=== PATIENT | female | born 1960 | race Hispanic/Latino ===

== ENCOUNTER → 2020-05-04 | Outpatient (CLI) | payer BC ==
[~2020-05-04] MED LIST: IOHEXOL-350 75 ML VIAL IV ONE
== END | disposition home or self-care (01) ==
LOC: RAH 04-29 09:38
PROVIDERS: ATTEND Neurological Surgery
DX: I65.23 Occlusion and stenosis of bilateral carotid arteries (principal); M50.30 Other cervical disc degeneration, unspecified cervical region
CPT/HCPCS: 70498; Q9967

== ENCOUNTER 2020-06-24 08:43 | Day surgery (SDC) | payer BC ==
[2020-06-22 10:02] LABS: BASOPHILS % (AUTO) 0.9 % (0.0-5.0); EOSINOPHILS % (AUTO) 0.9 % (0.0-8.0); HEMATOCRIT 47.5 % (36-48); LYMPHOCYTES % (AUTO) 33.7 % (21.0-51.0); MEAN CORPUSCULAR HEMOGLOBIN 29.8 pg (27.0-33.0); MEAN CORPUSCULAR HGB CONC 33.5 g/dL (32.0-36.0); MEAN CORPUSCULAR VOLUME 89.1 fL (79-99); MONOCYTES % (AUTO) 7.9 % (3.0-13.0); NEUTROPHILS % (AUTO) 56.4 % (40.0-77.0); PLATELET COUNT (AUTO) 266 K/uL (130-400); RED BLOOD CELL COUNT(AUTO) 5.33 MIL/uL (4.00-5.50); WHITE BLOOD COUNT (AUTO) 10.7 K/uL (4.8-10.8)
[2020-06-22 10:09] LABS: CREATININE 0.7 mg/dL (0.5-1.5); POTASSIUM 4.2 mmol/L (3.5-5.1)
[2020-06-22 10:09] LABS: APPEARANCE,URINE Clear (CLEAR); BILIRUBIN,URINE Negative (NEGATIVE); COLOR,URINE Yellow (YELLOW); GLUCOSE, URINE (UA) >=1000 mg/dL (NEGATIVE); KETONES,URINE Negative (NEGATIVE); LEUKOCYTE ESTERASE ,URINE Negative (NEGATIVE); NITRATE,URINE Negative (NEGATIVE); OCCULT BLOOD,URINE Negative (NEGATIVE); PROTEIN,URINE Negative (NEGATIVE); UROBILINOGEN,URINE 0.2 mg/dL (0.2-1.0)
[2020-06-22 10:12] LABS: INR 1.01 (0.85-1.15)
[2020-06-22 10:14] LABS: PARTIAL THROMBOPLASTIN TIME 28.2 SEC (26.3-35.5)
[2020-06-22 10:24] LABS: BACTERIA,URINE Rare /HPF (None Seen); RBC,URINE 0-1 /HPF (0-1); WBC,URINE 0-1 /HPF (0-1)
[2020-06-22 10:25] LABS: YEAST,URINE BUDDING Rare /HPF (None Seen)
[2020-06-23 13:43] VITALS: BP 134/68
[~2020-06-24] VITALS: Ht 157.5 cm; Wt 64.4 kg
[2020-06-24] VITALS (9 sets, daily range): BP systolic 97–121; BP diastolic 46–72
[~2020-06-24 08:43] MED LIST changes: +ATOR40TA69 PO; +CARV12.580 PO; +CLOP75TA14 PO; +DULA0.75 SQ; +EMPA10TA PO; +FAMO-136 PO; +GABA-529 PO; +ICOS1CAP PO; -IOHEXOL-350 75 ML VIAL IV ONE; +LOSA25TA41 PO; +METF-910 PO; +SODIUM CHLORIDE 0.9% 1000ML 1,000 ML IV SCH
[2020-06-24] MEDS ORDERED: LIDOCAINE HCL 2% 20ML ONE (10:45)
[2020-06-24] MEDS ORDERED: IODIXANOL 320 MG/ML 100 ML VIAL ONE (10:45)
[2020-06-24] MEDS ORDERED: NITROGLYCERIN 2 MG/VIAL VIAL IV ONE (10:45)
[2020-06-24] MEDS ORDERED: HEPARIN SODIUM 1000UNIT/ML 10ML VIAL ONE (10:45)
[2020-06-24] MEDS ORDERED: SODIUM BICARB 50MEQ 50ML VIAL 50 ML ONE (10:45)
[2020-06-24] MEDS ORDERED: MIDAZOLAM HCL 1 MG/ML 2ML VIAL ONE (11:02)
[2020-06-24] MEDS ORDERED: MEPERIDINE-PF 25 MG/ML SYG ONE (11:02)
[2020-06-24] MEDS ORDERED: DEXTROSE 50%-WATER 50 ML DISP.SYRIN IV PRN (11:30)
[2020-06-24] MEDS ORDERED: SODIUM CHLORIDE 0.9% 1000ML 1,000 ML IV SCH (11:30)
[2020-06-24] MEDS ORDERED: INSULIN HUMULIN R 100 UNIT/ML 3ML SQ SCH (11:30)
== END 2020-06-24 16:30 | disposition home or self-care (01) ==
LOC: DAH 08:43
PROVIDERS: ATTEND Internal Medicine Cardiovascular Disease
DX: I65.23 Occlusion and stenosis of bilateral carotid arteries (principal); Q25.49 Other congenital malformations of aorta; E78.5 Hyperlipidemia, unspecified; E11.9 Type 2 diabetes mellitus without complications; I25.10 Atherosclerotic heart disease of native coronary artery without angina pectoris; I10 Essential (primary) hypertension; Z79.01 Long term (current) use of anticoagulants; Z95.1 Presence of aortocoronary bypass graft; Z79.84 Long term (current) use of oral hypoglycemic drugs; Z79.899 Other long term (current) drug therapy; Z98.890 Other specified postprocedural states; Z86.73 Personal history of transient ischemic attack (TIA), and cerebral infarction without residual deficits; Z90.49 Acquired absence of other specified parts of digestive tract
CPT/HCPCS: 36223; 36415; 71045; 80048; 81001; 82948 ×2; 85025; 85610; 85730; 93005; A4215; A4216; A4221; A4222; A4223 ×3; A4606; A4663; C1760; C1894; J1644; J2175; J2250; J3490 ×3; J7030; Q9967; 96360; 96361; 99156; 99157